=== PATIENT | female | born 1965 | race African-American/Black ===

== ENCOUNTER → 2021-09-08 | Outpatient (CLI) | payer OTHER ==
[~2021-09-08] MED LIST: ASPIRIN EC81 M1 PO; HYZAAR 50-12.51 EACH PO; NORVASC5 MG PO; PROAIR HFA8.5 GM INH; PROBIOTIC1 EAC7 PO; SERTRALINE HCL100 MG PO; VITAMIN B-121000 MC2 SUBLING; VITAMIN C500 M1 PO; VITAMIN D31250 MCG PO; ZINC50 M2 PO
== END ==
LOC: LAB 15:21
PROVIDERS: ATTEND Student in an Organized Health Care Education/Training Program
DX: Z01.812 Encounter for preprocedural laboratory examination (principal); Z20.822 Contact with and (suspected) exposure to COVID-19

== ENCOUNTER → 2021-09-10 | Outpatient (CLI) | payer OTHER ==
[~2021-09-10] VITALS: Ht 162.6 cm; Wt 97.5 kg
--- NOTE | 2021-09-10 14:52 | P ---
[facility] [place] [address] PROCEDURE REPORT Name: BRIAN HOPPER Room #: REG LILLIAN PenelopeTalyaPenelope#: [id number] Admission: 09/10/21 Attend Phys: Andrew Trujillo Discharge: Date of : 69 Report #: [id number] THIS REPORT FOR: cc: Physician not on staff Physician not on staff Andrew Mauricio MD ~ cc: Mercedes Pendleton DATE OF SERVICE: 09/10/2021 PROCEDURE PERFORMED: Colonoscopy with biopsies. HISTORY OF PRESENT ILLNESS: The patient is a 55-year-old female who presents today for routine screening colonoscopy. Denies any symptoms, no family history of colon cancer. DESCRIPTION OF PROCEDURE: The risks and benefits of the procedure were explained to the patient, those risks including but not limited to bleeding, perforation and the risk of sedation. She understood these risks and gave informed consent. Sedation was given using propofol per Anesthesia. Next, a digital rectal exam was initially performed, which was normal. Next, using a standard Olympus colonoscope, the scope was placed in the patient's anus and advanced under direct vision to the cecum. The overall prep was excellent. The cecum and ileocecal valve were normal in appearance. The ascending, transverse and descending colon were normal. Two 4 mm sessile polyps were noted in the sigmoid colon, both were removed with cold forceps, otherwise normal. In the rectum, a 5 mm sessile polyp was noted, also removed with cold forceps. On retroflexion, no abnormalities were noted. The scope was then withdrawn and the procedure terminated. The patient tolerated the procedure well. IMPRESSION: 1. Three small colonic polyps. 2. Otherwise, normal colonoscopy. RECOMMENDATIONS: 1. Await biopsy results. 2. Repeat colonoscopy in 5 years. Thank you for allowing me to participate in her care. <ELECTRONICALLY SIGNED> By: Andrew Mauricio MD 09/10/21 1452 1056 [id number] Andrew Mauricio MD /nt
--- NOTE | 2021-09-12 17:06 | PATH ---
[facility] [address] [address] PATHOLOGY RPT PROCEDURE Name: RUCHIBRIAN R Room #: REG LILLIAN Musa#: [id number] Admission: 09/10/21 Date of : 69 Discharge: Report #: [id number] Path Case #: [id number] [facility] Accession Number: [id number] . 01 Material submitted: . PART A: sigmoid colon - SIGMOID COLON POLYP PART B: rectum - RECTAL POLYP . 01 Clinical history: . SCREENING . 01 Diagnosis: A. Colonic mucosa, "sigmoid colon biopsy: - Hyperplastic polyps. - There is no evidence of adenomatous change, high-grade dysplasia or malignancy. . B. Colonic mucosa, "rectal polyp biopsy": - Hyperplastic polyps. - There is no evidence of adenomatous change, high-grade dysplasia or malignancy. . (PRINCE:riley; 09/12/2021) MBTalya 09/12/2021 1420 Local . 01 Electronically signed: . Oz Smith MD, Pathologist NPI- [id number] . 01 Gross description: . A. The specimen is received in formalin, labeled "Brian Clifford, sigmoid colon polyp". Received are 3 segments of pale montano tissue ranging in size from 0.3-0.4 cm in maximum dimensions. The specimen is entirely submitted in cassette A1. . B. The specimen is received in formalin, labeled "Brian Clifford, rectal polyp". Received are 3 segments of pale montano tissue ranging in size from 0.2-0.3 cm in maximum dimensions. The specimen is entirely submitted in cassette B1. ([facility]; 09/10/2021) NRI/NRI 09/10/2021 2153 Local . 01 Pathologist provided ICD-10: K63.5, K62.1 . 01 CPT . 775241, [id number] [address] [address] PATHOLOGY RPT PROCEDURE Name: BRIAN CLIFFORD Room #: REG CLI Dimple#: [id number] Admission: 09/10/21 Date of : 69 Discharge: Report #: [id number] Path Case #: [id number] Specimen Comment: A courtesy copy of this report has been sent to [phone] Specimen Comment: Report sent to Performed at: 01 [facility] [address], [place], [place] [id number] MD Oz Smith MD Phone: [phone]
== END | disposition home or self-care (01) ==
LOC: GI
PROVIDERS: ATTEND Specialist
DX: Z12.11 Encounter for screening for malignant neoplasm of colon (principal); K63.5 Polyp of colon; I10 Essential (primary) hypertension; J45.909 Unspecified asthma, uncomplicated; Z87.891 Personal history of nicotine dependence; Z98.890 Other specified postprocedural states; Z79.899 Other long term (current) drug therapy; Z98.51 Tubal ligation status; Z88.2 Allergy status to sulfonamides; Z88.8 Allergy status to other drugs, medicaments and biological substances
CPT/HCPCS: 62110; 62900